=== PATIENT | male | born 1935 | race Caucasian/White ===

== ENCOUNTER 2019-10-27 08:00 | Inpatient (IN) ==
[2019-12-08] MEDS ORDERED: TRANEXAMIC ACID 1,000 MG in NORMAL SALINE 100 ML IV PRN (06:00)
[2019-12-08] MEDS ORDERED: MORPHINE SULFATE 15 MG TABLET.SA PO PRN (06:00)
[2019-12-08] MEDS ORDERED: RINGER'S SOLUTION,LACTATED 1,000 ML IV PRN (06:00)
[2019-12-08] MEDS ORDERED: ROPIVACAINE HCL/PF 100 MG, EPINEPHrine 0.2 MG, KETOROLAC TROMETHAMINE 30 MG in NORMAL S... IJ PRN (06:00)
[2019-12-08] MEDS ORDERED: ceFAZolin SODIUM 1 GM VIAL IV PRN (06:00)
[2019-12-08] MEDS ORDERED: FLU VACC QS2020-21(6MOS UP)/PF 60 MCG/0.5 ML SYRINGE IM ONE (06:55)
[2019-12-08] MEDS ORDERED: PROPOFOL VIAL IV ONE (06:55)
[2019-12-08] MEDS ORDERED: MIDAZOLAM HCL/PF 5 MG/ML VIAL ONE (06:55)
[2019-12-08] MEDS ORDERED: BUPIVACAINE HCL/EPINEPHRINE 50 ML VIAL ONE (06:55)
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
[2019-12-08] MEDS ORDERED: ISOPROPYL ALCOHOL 480 APPL BTL MC ONE (07:23)
[2019-12-08] MEDS ORDERED: ceFAZolin SODIUM 1 GM VIAL ONE (07:23)
[2019-12-08] MEDS ORDERED: BUPIVACAINE HCL/PF 10 ML VIAL ONE (08:10)
[2019-12-08] MEDS ORDERED: diphenhydrAMINE HCL 50 MG/ML VIAL IV PRN (09:32)
[2019-12-08] MEDS ORDERED: ACETAMINOPHEN 500 MG TABLET PO PRN (09:32)
[2019-12-08] MEDS ORDERED: MAG HYDROX/ALUMINUM HYD/SIMETH 30 ML UDC PO PRN (09:32)
[2019-12-08] MEDS ORDERED: DEXTROSE 5%-LACTATED RINGERS 1,000 ML IV PRN (09:32)
[2019-12-08] MEDS ORDERED: ONDANSETRON HCL/PF 2 MG/ML VIAL IV PRN (09:32)
[2019-12-08] MEDS ORDERED: ZOLPIDEM TARTRATE 5 MG TABLET PO PRN (09:32)
[2019-12-08] MEDS ORDERED: HYDROmorphone HCL 1 MG/ML DISP.SYRIN IV PRN (09:32)
[2019-12-08] MEDS ORDERED: MAGNESIUM HYDROXIDE 30 ML UDC PO PRN (09:32)
--- NOTE | 2019-12-08 09:37 | OR ---
Operative Report - Dictated Report Narrative: Date: 12/08/2019 Preoperative diagnosis: Left knee degenerative joint disease. Postoperative diagnosis: Left knee degenerative joint disease. Procedure: Left total knee arthroplasty. Surgeon: Chau Hearn M.D. Pier Worker: Vinnie Oro PA-C (provided and essential set of skilled, educated hands that assisted with transfer, positioning, prepping, draping, manipulation, retraction, placement of jigs, injection, insertion of implants, irrigation, closure wounds, and dressings all of which could not be performed by the available surgical crew) Anesthesia: Spinal with regional block and local periarticular joint injection. Complications: None Specimens: Bone. Estimated blood loss: Minimal. Tourniquet time: 85 Minutes at 300 millimeters of mercury. Retained implants: Depuy Attune size 6 left lugged cemented posterior stabilized femoral component. Size 6 fixed-bearing cemented tibial platform. 6 by 8 millimeter posterior stabilized cross-linked tibial insert. 38 millimeter medialized patella button. Indications: Mr. Sigala is a 84-year-old gentleman who has had longstanding left knee pain and arthrosis. This patient was followed in my clinic for period of time with significant complaints of left knee pain consistent with arthritic changes. He had failed conservative measures including, but not limited to, activity modification, passage of time, medications, and other conservative measures. Patient wished to proceed with surgical treatment. The risks, benefits, and alternatives were discussed in clinic. The risks of , blood clots, bleeding, infection, nerve/tendon blood vessel/ injury, malposition of components, intraoperative fracture, postoperative limited range of motion, persistent pain, failure of components, and need for additional procedures. Patient wished to proceed consent was obtained after answering all questions. Procedure: After marking the correct extremity on the floor, the patient was taken to the operating room. A timeout was performed. IV antibiotics consisting of Ancef were administered prior to the procedure. A regional followed by spinal anesthetic was induced by anesthesia, per my request, on the operative table with all bony prominences well-padded. Bowling catheter was placed, and a bump was placed under the operative side buttock. SCDs and LALI hose were utilized on the nonoperative leg. A well-padded tourniquet was applied to the operative thigh. The operative leg was then pre-scrubbed with alcohol, prepped, and draped in a standard sterile fashion. After exsanguinating the extremity with an Esmarch bandage, the tourniquet was inflated. After marking out the anterior knee for standard incision centered over the patella, the skin was incised and dissected down to the joint retinaculum. The joint retinaculum was marked out as well as the horizontal axis of the patella, and a standard medial parapatellar arthrotomy was then made. The most proximal aspect of the quadriceps tendon and the patella tendon insertion were protected from release. A partial synovectomy was performed as well as a resection of the infrapatellar fat pad. The distal femoral fat pad proximal to the trochlea was also resected using cautery. The soft tissues were elevated off the medial aspect of the proximal tibia using a Peterson elevator ensuring that we did not transect the medial collateral ligament. Upon initial evaluation range of motion was approximately 0 degrees to 130 degrees of flexion. There were signs of advanced arthrosis in the medial and patellofemoral greater than lateral joint spaces. There were large marginal osteophytes which were removed with a rongeur. The knee was hyperflexed and the patella was tucked laterally. Protecting the surrounding soft tissues with Homans, an entry drill was placed down the femoral canal using Whitesides line for guidance into the entry point. The intramedullary femoral alignment bj was utilized in order to cut the distal femur in 5 degrees of valgus resecting 10 millimeters of bone. Next the distal femur was sized to a size 6. A posterior referencing guide was utilized to place the distal femoral cutting block in 3 degrees of external rotation. This was pinned into place. The rotation was confirmed both visually and based on anatomic landmarks. The 4 in 1 cutting jig of the appropriate size was utilized in order to make all bony cuts. The jeronimo wing was used to ensure no notching. Retractors were utilized in order to protect surrounding soft tissues. This cut did not result in any excessive notching. We then cut the box centered over the distal femur. This allowed for resection of the anterior and posterior cruciate ligaments. I then turned my attention to the preparation of the tibia. Using an extra medullary tibial alignment bj, 3 millimeters of bone was resected off the medial articular surface. This was made perpendicular to the mechanical axis of the joint with the alignment bj centered over the ankle mortise. The alignment bj was checked and was noted to be parallel to the mechanical axis, centered over the medial one third of the tibial tubercle, paralleling the anterior surface of the tibia. We then turned our attention to the remaining meniscus and soft tissues. These were removed while protecting the surrounding ligaments and soft tissues. The marginal osteophytes off the anterior, posterior, medial, lateral aspects of the femur and tibia were removed. The tibia was sized out to a size 6. Next the tibia was drilled and punched in an externally rotated position. Next the trial femur and a series of tibial inserts were utilized in order to allow for full extension and maximal flexion. It was found that a 8 millimeter insert gave the best range of motion and stability at multiple flexion points as well as at full extension there was less than 2 mm of gapping both medially and laterally. There is minimal anterior translation with the knee at 90 degrees of flexion and no signs of being able to dislocate the knee. The patella was then prepared. The initial thickness was 25 millimeters. This was reamed down to 15 millimeters parallel to the anterior surface of the patella. It was sized out to a size 38 medialized patella button. This was then drilled and trialed. Without any medial restraint the patella tracked appropriately and did not sublux or dislocate. At this point, it was felt these were the appropriate sized implants, and all trials were removed. The standard periarticular joint injection consisting of ropivacaine, Toradol, and epinephrine were injected into the periarticular joint tissues. The bony surfaces were thoroughly irrigated with a pulsatile-suction saline irrigation device. A bone plug from the prior resected anterior chamfer cut was placed into the drill hole at the distal femur. The bony surfaces were then dried in preparation for placement of the implants. The cement was vacuum mixed per the master scheduler's instructions. The cement was placed on the dry bony surfaces and posterior aspect of the implants. The implants were impacted into place, removing all extruded cement. At this point anesthesia administered tranexamic acid per protocol intravenously. The knee was placed in extension with axial loading with the trial insert while the cement cured. Once the cement cured, all remaining extruded cement was removed. The knee was placed through a range of motion with the trial insert to ensure appropriate range of motion and stability. Final range of motion was approximately 0 to 130 degrees. The knee was again thoroughly irrigated with pulsatile saline lavage. The final polyethylene insert was then impacted into place ensuring no retained soft tissues. The remaining periarticular joint injection was injected. A medium Hemovac drain was placed exiting superior laterally. The knee was then placed over a triangle and the arthrotomy was closed with interrupted #1 Vicryl after thoroughly irrigating the joint. The deep and subcutaneous tissues were closed with interrupted 0 and 3-0 Vicryl respectively. Skin was closed with a running subcutaneous 3-0 Monocryl and Prineo Dermabond dressing. 4 x 4's, Sof-Rol, and a full leg [place] wrap were applied. All sponge, needle, blade, and instrument counts were correct prior to closing the wounds. Postoperative condition: The patient was awoken and transferred to the postanesthesia care unit in stable condition. Plan is to be admitted to the inpatient medical/surgical floor postoperatively for 24 hours of IV antibiotics, physical therapy, occupational therapy, and medical comanagement. Patient will be weightbearing as tolerated with range of motion as tolerated. DVT prophylaxis will be with SCDs, LALI hose, and pharmacological anticoagulation. Anticipated hospital stay is approximately 1-3 days.
--- NOTE | 2019-12-08 10:03 | ANES ---
Post Anesthesia Discharge - Transfer of Care Transfer of Care handoff given to nurse: Yes - Discharge from PACU Discharge from PACU when meets criteria: Yes - Alert and comfortable.
--- NOTE | 2019-12-08 10:03 | ANES ---
Anesthesia Procedure Note Procedure Note: ANESTHESIA PROCEDURE NOTE Date of Procedure: 12/08/2019 Time of procedure: 7:50 AM. Performed by: AUBREE Stern CRNA, MSN Life Skills Teacher: Sang Yao RN. Preprocedure diagnosis: Post total knee arthroplasty pain. Post procedure diagnosis: Same. Procedure: Left adductor Canal Block. Indications: Post left total knee arthroplasty pain relief. Findings: See below. Details of the procedure: The patient was brought to OR #4 and placed in supine position. The patient's left femoral area to the knee was prepped with chlorhexidine and using ultrasound guidance the left femoral artery and nerve was identified and then followed to the level of the adductor canal. Lidocaine 1% was infiltrated to the skin of the intended injection site. Under ultrasound guidance the saphenous nerve was approached with visualization of a 4 inch shielded block needle. Once saphenous nerve was identified with proximity to the needle tip, the saphenous nerve was surrounded with 30 mL bupivacaine 0.25% with 1-200,000 epinephrine. Please see radiology/ultrasound report for details and retained images of the procedure. EBL: 0 Fluids: N/A. Specimen: N/A. Post procedure condition: The patient tolerated the procedure well. No complications were noted. Thank you for this consultation. Espinoza Aly CRNA, ARNP, MSN
--- NOTE | 2019-12-08 10:57 | ANES ---
Post Anesthesia Assessment - Vital Signs Vitals: Last Vital Signs Temp 36.5 C 12/08/19 10:25 Pulse 62 12/08/19 10:25 Resp 14 12/08/19 10:25 BP 102/46 12/08/19 10:25 Pulse Ox 97 12/08/19 10:25 Airway Patency: Normal - Mental Status Level Of Consciousness: Awake, Alert, Appropriate - Pain Level Pain Score: 0 - N/V Assessment Nausea/Vomiting Presence: None Dehydration:: No
[2019-12-08] MEDS: KETOROLAC TROMETHAMINE 15 MG/ML VIAL IV SCH ×3 (11:16→21:22)
[2019-12-08] MEDS: ceFAZolin SODIUM 1 GM in DEXTROSE 5 % IN WATER 100 ML IV SCH ×6 (11:22→23:16)
[2019-12-08] MEDS: oxyCODONE HCL/ACETAMINOPHEN 1 TAB TABLET PO PRN (19:45)
[2019-12-08] MEDS ORDERED: SENNOSIDES/DOCUSATE SODIUM 1 TAB TABLET PO SCH (21:00)
[2019-12-08] MEDS ORDERED: ROSUVASTATIN CALCIUM 20 MG TABLET PO SCH (21:00)
[2019-12-09] MEDS: KETOROLAC TROMETHAMINE 15 MG/ML VIAL IV SCH ×2 (03:09→10:35)
[2019-12-09] MEDS: oxyCODONE HCL/ACETAMINOPHEN 1 TAB TABLET PO PRN ×2 (06:35→10:43)
[2019-12-09 06:36] LABS: Hematocrit 40.3 % (42.0-52.0); Hemoglobin 13.6 gm/dL (13.5-18.0); Mean Cell Volume 93.9 fl (78-100); Mean Corpuscular Hemoglobin 31.7 pg (27-31); Mean Corpuscular Hgb Conc 33.7 g/dl (32-36); Mean Platelet Volume 9.7 fl (8-11.3); Platelet Count 215 K/mm3 (150-450); Red Blood Count 4.29 M/mm3 (4.7-6.0); Red Cell Distribution Width 12.6 % (11.5-14.0); White Blood Count 8.2 K/mm3 (4.0-10.5)
[2019-12-09 06:44] LABS: Anion Gap 11.5 mmol/L (6.8-13.8); BUN/Creatinine Ratio 16.5 (9.0-21.6); Calcium * 8.7 mg/dL (7.9-10.9); Carbon Dioxide 26.6 mmol/L (24-32.6); Estimated Creat Clear 42.7; Potassium 4.1 mmol/L (3.4-4.6)
[2019-12-09] MEDS ORDERED: PANTOPRAZOLE SODIUM 40 MG TABLET.EC PO SCH (07:00)
[2019-12-09] MEDS ORDERED: ENOXAPARIN SODIUM 40 MG/0.4 ML SYRG SC SCH (08:33)
[2019-12-09] MEDS ORDERED: METOPROLOL SUCCINATE 50 MG TABLET.SA PO SCH (09:00)
[2019-12-09] MEDS ORDERED: FINASTERIDE 5 MG TABLET PO SCH (09:00)
[2019-12-09] MEDS ORDERED: LISINOPRIL 10 MG TABLET PO SCH (09:00)
--- NOTE | 2019-12-09 10:53 | DS ---
(1) Status post left knee replacement Problem: Acute (2) BPH (benign prostatic hyperplasia) Problem: Chronic Qualifiers: (3) CAD (coronary artery disease) Problem: Chronic (4) Essential hypertension Problem: Chronic (5) Hyperlipidemia Problem: Chronic Qualifiers: (6) Obstructive sleep apnea Problem: Chronic Date of Discharge:: 12/09/19 Hospital Course: Mr. Sigala was admitted to the floor after undergoing left total knee arthroplasty. Tolerated this well. Was admitted to the floor postoperatively for 24 hours of IV antibiotics, pain control, medical comanagement, and occupational and physical therapy. OT and PT were consulted to assist with ac tivities of daily living and ambulation. Was made weightbearing as tolerated with range of motion as tolerated. Pain was initially controlled with IV regimen. This was transitioned to oral once tolerating a by mouth intake. Was resumed on home diet and medications. A Bowling catheter was inserted in the operating room which was discontinued by postoperative day 1. A drain was placed intraoperatively into the knee which was discontinued on postoperative day 1. Lovenox, SCDs, and LALI hose were utilized for DVT prophylaxis. Vital signs remained stable to the hospital course. Labs were obtained which showed a final hemoglobin of 13.6 grams. BMP was reviewed and was stable. Physical examination throughout the hospital course showed an extremity that had sensation that was intact to light touch, palpable pulses, a benign wound, motor intact to the toes, ankle, and knee. Knee range of motion was approximately 5 degrees to 60 degrees. Once an oral pain regimen was tolerated and physical therapy goals were met, it was felt that they were stable for discharge to home. Instructions: Continue with weightbearing as tolerated and range of motion as tolerated. It is okay to shower and get the wound wet as long as there is no drainage from the wound. Do not bathe or soak the wound. If there is any drainage from the wound keep the wound clean and dry and cover with dry gauze and tape. Change every 2- 3 days as needed if there is any drainage. Cover wound while showering if there is any drainage. Continue with physical therapy. Resume home diet. Report any fever over 101.5 Fahrenheit, uncontrolled pain, increased drainage, foul odor of drainage, new or increased calf pain or shortness of breath, or any other significant complaints. His Plavix and preoperative aspirin will be started after finishing anticoagulation with Lovenox. Continue with LALI hose on the operative extremity until instructed otherwise. No driving until instructed otherwise. Follow up in approximately 2-3 weeks. Procedures Performed: see notes below List Procedures: left knee replacement Results and Findings: Lab Pending Results 12/09/19 06:20: WBC 8.2, RBC 4.29 L, Hgb 13.6, Hct 40.3 L, MCV 93.9, MCH 31.7 H, MCHC 33.7, RDW 12.6, Plt Count 215, MPV 9.7 12/09/19 06:20: Sodium 138, Plasma Sodium 138, Potassium 4.1, Chloride 104, Carbon Dioxide 26.6, Anion Gap 11.5, BUN 22, Creatinine 1.33, Est GFR (Non-Af Amer) 55 L, BUN/Creatinine Ratio 16.5, Random Glucose 100, Calcium 8.7 Discharge Location: Home Disposition: Home self-care Condition: Good Discharge Activity: Activity as tolerated, Weight bearing Discharge Diet: General/regular food Referrals: Leonel Patel DO [Primary Care Provider] - Vinnie Oro PAC [Nursing Department Chairperson] - 12/30/19 2:30 pm Problem Oriented Discharge Instructions to Patient/Family: Total Knee Replacement, Care After, [id number] Additional Patient Instructions (free text): Physical Therapy at [facility] on December 10 at 11:00am. Fax PT order/demographics to [phone]. Follow up [facility] Orthopedic office appointment on SundayDecember 29 at 2:30pm. Prescriptions (Any new or edited meds): Enoxaparin Sodium [Lovenox] 40 mg SC Q24H #7 disp.syrin Transmission Status: Pending to [facility] - [place], [place] oxyCODONE HCL/ACETAMINOPHEN [Percocet 5 MG/325 MG] 1 - 2 tab PO Q4H PRN #50 tab PRN Reason: Moderate Pain (Pain Scale 4-6) Transmission Status: Sent to [facility] - [place], [place] Sennosides/Docusate Sodium [Senokot-S] 2 tab PO HS #60 tab Transmission Status: Pending to [facility] - [place], [place] Complete Home Medications List: Complete Home Medication List: oxygen-air delivery systems See Dose Instructions .ROUTE .MEDSUPPLY #1 08/20/17 CPAP 0 .ROUTE .MEDSUPPLY #1 ea 09/18/17 aspirin 81 mg tablet,delayed release 81 mg PO DAILY 11/30/17 metoprolol succinate 50 mg tablet,extended release 24 hr 50 mg PO DAILY #90 tab 01/23/19 pantoprazole 40 mg tablet,delayed release 40 mg PO DAILY #90 tab 01/29/19 lisinopril 10 mg tablet 10 mg PO DAILY #90 tab 03/13/19 atorvastatin 40 mg tablet 40 mg PO HS #90 tab 04/14/19 clopidogrel 75 mg tablet 75 mg PO DAILY #90 tab 04/14/19 finasteride 5 mg tablet 5 mg PO DAILY #90 tab 04/14/19 Enoxaparin Sodium [Lovenox] 40 mg SC Q24H #7 disp.syrin 12/09/19 Sennosides/Docusate Sodium [Senokot-S] 2 tab PO HS #60 tab 12/09/19 oxyCODONE HCL/ACETAMINOPHEN [Percocet 5 MG/325 MG] 1 - 2 tab PO Q4H PRN #50 tab 12/09/19 Amb Orders for Discharge: PT Evaluation and Treatment* Facility: [facility], Location: Rehabilitation Services Forms: Patient Portal Registration
[2019-12-09 13:28] VITALS: BP 150/68
== END 2019-12-09 14:30 | disposition home or self-care (01) | DRG 470 ==
LOC: MS 12-08 06:26 → EDSTATUS 12-08 08:00
PROVIDERS: ADMIT Orthopaedic Surgery; ATTEND Orthopaedic Surgery
DX: G47.33 Obstructive sleep apnea (adult) (pediatric); E78.5 Hyperlipidemia, unspecified; Z23 Encounter for immunization; I10 Essential (primary) hypertension; M17.12 Unilateral primary osteoarthritis, left knee; N40.0 Benign prostatic hyperplasia without lower urinary tract symptoms